=== PATIENT | female | born 1955 | race Caucasian/White ===

== ENCOUNTER 2017-05-25 20:10 | Observation (INO) | payer OTHER ==
--- NOTE | 2017-05-25 20:33 | EDPHY ---
H & P Stated Complaint: CHEST PAIN AND DYSPNEA - Personal History Current Tetanus/Diphtheria Vaccine: Unsure Tetanus Vaccine Date: < 10 YRS - Medical/Surgical History Hx Asthma: No Hx Chronic Respiratory Disease: No Hx Diabetes: No Hx Cardiac Disease: No Hx Renal Disease: No Hx Cirrhosis: No Hx Alcoholism: No Hx HIV/AIDS: No Hx Splenectomy or Spleen Trauma: No Other PMH: AORTIC AYNERSYM, KNEE SURGERY OSTEPEROSIS - Social History Smoking Status: Never smoked HPI/ROS: CHIEF COMPLAINT: Chest pain HISTORY OF PRESENT ILLNESS: Patient complains of chest pain that started early this morning. It is left- sided chest pain. Does not radiate. Constant duration. [id number]. Associated with difficulty catching her breath. No shortness of breath. No recent travel or surgery. No extremity erythema edema or pain. No trauma or injury. No nausea or sweating. Recently started Monday and was brief. She saw her road engineer on Monday for an EKG. This was reportedly normal. They then scheduled for outpatient for further workup. She was told to come to the ER for return and did so this morning. She is concerned about it. No other associated complaints or modifying factors. REVIEW OF SYSTEMS: Ten systems reviewed and are negative unless otherwise noted in the HPI PAST MEDICAL HISTORY: Hypothyroid. Reportedly aberrant Cardiovascular vasculature but no CAD. No ND. No stroke. SOCIAL HISTORY: Nonsmoker. Lives independently here with her spouse FAMILY HISTORY: Coronary artery disease in the family prior to age 60. EXAMINATION General Appearance: Alert, no distress Head: normocephalic, atraumatic Eyes: Pupils equal and round, no conjunctival pallor or injection ENT, Mouth: Mucous membranes moist Neck: Normal inspection, supple, non-tender Respiratory: Lungs are clear to auscultation Cardiovascular: Regular rate and rhythm. No murmur. Pulses intact distally Gastrointestinal: Abdomen is soft and nontender Back: non-tender, no bony abnormalities Neurological: A&O, nonfocal, normal gait Skin: Warm and dry, no rash Extremities: Nontender, no pedal edema Psychiatric: Mood and affect normal DIFFERENTIAL DIAGNOSES: Including but not limited to ACS, chest pain, PE, pneumonia, reflux, pleurisy, pericarditis MDM: 8:30 p.m. Chest pain that originally started Monday and then resolved. The pain returned early this morning. It has been constant throughout the day today. Not exertional. Does not radiate. No shortness of breath but some difficulty "catching" her breath. No previous diagnosis of coronary artery disease. Laboratory studies an EKG are pending. Vital signs are stable. 9:45 p.m. Chest x-ray is normal. Laboratory studies are within normal limits, this includes a negative troponin which is sensitive given the duration of her pain. Also includes a negative D-dimer. 9:55 p.m. I have re-evaluated the patient. I originally thought that the patient's chest pain started this morning. She clarified that it started at 6:00 p.m. and not 6 :00 a.m.. Lesser chest pain is been present for 4 hours at this time. Given that information I do recommend that we observe the patient for serial troponins tonight. She is agreeable with this plan. Thus far thing laboratory studies are negative and vital signs are stable. Addendum 1:20 a.m. This is an addendum to the patient's chart. After she was admitted to the hospital I was recently contacted by radiologist Dr. Cruz. He informed me that there is a small nodule on the right side of the chest x-ray. He suspects this is consistent with a nipple shadow. He recommends that the patient receive a chest x-ray with nipple markers in the morning. I have conveyed this information to Dr. Mistry. She will discuss with her colleagues to arrange for the chest x-ray in the morning. SUPERVISION: Patient was evaluated in conjunction with the supervising physician. Please see their note for details. (Tariq Raymond) Constitutional: Initial Vital Signs Temperature (C) 36.0 C 05/25/17 20:11 Heart Rate 88 05/25/17 20:11 Respiratory Rate 18 05/25/17 20:11 Blood Pressure 122/75 H 05/25/17 20:11 O2 Sat (%) 97 05/25/17 20:11 O2 Delivery Mode Room Air Allergies/Adverse Reactions: No Known Allergies Allergy (Unverified 08/22/09 08:54) Home Medications: Medication Instructions Recorded Calcium Carbonate [[id number]] 500 mg PO BID 07/26/13 Cholecalciferol Vit D3 [Vitamin D3 1,000 units PO DAILY 07/26/13 (*)] Herbals/Supplements -Info Only 1 each PO AD 07/26/13 Thyroid [Lenox Thyroid 60 MG (*)] 45 mg PO DAILY10 07/26/13 Vitamin B Complex [B Complex] 1 each PO DAILY 07/26/13 Zolpidem Tartrate [Ambien 5MG (*)] 5 mg PO HS PRN 07/26/13 Alendronate Sodium [Fosamax 70 MG 70 mg PO TU@0700 05/26/17 (*)] diphenhydrAMINE [Benadryl 25 MG 25 - 50 mg PO HS PRN 05/26/17 (*)] Medical Decision Making - Diagnostics EKG Interpretation: 12 lead EKG is interpreted in Trace master View by emergency department physician. (Jaz Redd) Other Provider: I have evaluated and participated in the management of this patient. My co- signature indicates that I have reviewed this chart and that I agree with the findings and the plan of care as documented. My personal history and physical findings include: 61-year-old female who presents with left upper chest pain that has been constant for the past few hours. She had similar chest pain 3 days ago that resolved spontaneously. She reports mild dyspnea, no nausea or diaphoresis. She exercises regularly and does not experience chest pain with exertion. His a family history of early coronary artery disease. She underwent coronary angiogram 10 years ago and reports that no significant coronary artery disease was seen. Apparently there was a question of an aberrant coronary artery--she had this evaluated at [facility] and told that it was told that was nothing to worry about. She is known to have dilatation of the ascending aorta, last noted to be just over 4 cm. She has this regularly followed and brings the reports with her. She has taken aspirin. On physical examination she is awake and alert. No jugular venous distension. Lungs are clear to auscultation. Heart has regular rate and rhythm without murmur, rub, or gallop. Abdomen is soft and nontender. Lower extremities are without edema. I reviewed her EKG and chest x-ray. Initial troponin is normal. She is being admitted for serial troponins. This pain could be GI in origin or musculoskeletal. She has no risk factors for PE and I do not suspect PE. There is no evidence of pneumonia on chest x-ray. She has not had chest trauma. (Jaz Redd) - Data Points Laboratory Results: Laboratory Results 05/25/17 20:50 05/25/17 20:50 Medications Given: Discontinued Medications Acetaminophen (Tylenol) 1,000 mg PO ONCE ONE Stop: 05/25/17 22:20 Last Admin: 05/25/17 22:31 Dose: 1,000 mg Diphenhydramine HCl (Benadryl) 25 - 50 mg PO Q6HRS PRN PRN Reason: Itching Stop: 11/21/17 23:56 Last Admin: 05/26/17 02:30 Dose: 25 mg Enoxaparin Sodium (Lovenox) 40 mg SC DAILY PEACE Stop: 11/22/17 08:59 Last Admin: 05/26/17 09:28 Dose: 40 mg Sodium Chloride (Ns) 1,000 mls @ 75 mls/hr IV CONT PEACE Stop: 11/21/17 23:44 Last Admin: 05/26/17 00:40 Dose: 1,000 mls Thyroid (Lenox Thyroid) 45 mg PO DAILY10 PEACE Stop: 11/22/17 12:14 Last Admin: 05/26/17 12:50 Dose: Not Given Departure - Departure Disposition: [facility] Acute Clinical Impression: Incidental lung nodule Chest pain Qualifiers: Chest pain type: unspecified Qualified Code(s): R07.9 - Chest pain, unspecified Condition: Good
--- NOTE | 2017-05-25 20:44 | CPEKG ---
Heart Rate: 66 RR Interval: 909 P-R Interval: 180 QRSD Interval: 84 QT Interval: 424 QTC Interval: 445 P Butler: 45 QRS Butler: -17 T Wave Butler: 37 EKG Severity - OTHERWISE NORMAL ECG - EKG Impression: SINUS RHYTHM EKG Impression: BORDERLINE LEFT AXIS DEVIATION Electronically Signed By: Jaz Redd 25-May-2017 23:16:30
[2017-05-25 20:58] LABS: % IMMATURE GRANULYOCYTES 0.4 % (0.0-1.1); ABSOLUTE IMMATURE GRANULOCYTES 0.02 10^3/uL (0.00-0.10); ADD DIFF? NO; ADD MORPH? NO; ADD SCAN? NO; ATYPICAL LYMPHOCYTE FLAG 10 (0-99); FRAGMENT RBC FLAG 0 (0-99); HEMATOCRIT 39.5 % (38.0-47.0); HEMOGLOBIN 13.4 g/dL (12.6-16.3); LEFT SHIFT FLG 0 (0-99); LIPEMIA HEMOLYSIS FLAG 90 (0-99); MEAN CELL HEMOGLOBIN 30.9 pg (27.9-34.1); MEAN CELL HEMOGLOBIN CONCENTR. 33.9 g/dL (32.4-36.7); MEAN CELL VOLUME 91.2 fL (81.5-99.8); MEAN PLATELET VOLUME 9.3 fL (8.7-11.7); PLATELET CLUMPS FLAG 10 (0-99); PLATELET COUNT 203 10^3/uL (150-400); RED BLOOD CELL COUNT 4.33 10^6/uL (4.18-5.33); RED CELL DISTRIBUTION WIDTH 12.5 % (11.5-15.2)
[2017-05-25 21:13] LABS: INR 0.98 (0.83-1.16); PROTIME(PATIENT) 12.9 SEC (12.0-15.0)
[2017-05-25 21:14] LABS: APTT 29.6 SEC (23.0-38.0)
[2017-05-25 21:16] LABS: ANION GAP 12 mEq/L (8-16); CALCIUM 9.7 mg/dL (8.5-10.4); CARBON DIOXIDE 26 mEq/l (22-31); CHLORIDE 102 mEq/L (97-110); CREATININE 0.9 mg/dL (0.6-1.0); GLOMERULAR FILTRATION RATE > 60; GLUCOSE 99 mg/dL (70-100); POTASSIUM 3.7 mEq/L (3.5-5.2); SODIUM 140 mEq/L (134-144)
[2017-05-25 21:26] LABS: TROPONIN I < 0.012 ng/mL (0.000-0.034)
[2017-05-25] MEDS ORDERED: ACETAMINOPHEN 500 MG TAB PO ONE (22:19)
[2017-05-25] MEDS ORDERED: NS 1,000 ML IV SCH (23:45)
[2017-05-25] MEDS ORDERED: ACETAMINOPHEN 325 MG TAB PO PRN (23:57)
[2017-05-25] MEDS ORDERED: ONDANSETRON DISINTEGRATING 4 MG TAB PO PRN (23:57)
[2017-05-25] MEDS ORDERED: HYDROCODONE/APAP 5/325 TAB PO PRN (23:57)
[2017-05-25] MEDS ORDERED: ONDANSETRON 4 MG/2 ML VIAL IVP PRN (23:57)
[2017-05-26] MEDS: diphenhydrAMINE 25 MG CAP PO PRN ×2 (00:40→02:30)
--- NOTE | 2017-05-26 03:47 | GHP ---
[f rep st] HISTORY AND PHYSICAL DATE OF SERVICE: 05/25/2017. Patient seen prior to midnight on 05/25/17 upon arrival to the floor. SOURCE: Patient provides history, appears reliable. Her EMR was also reviewed and case discussed with ED provider. CHIEF COMPLAINT: Left-sided chest pain. HISTORY OF PRESENT ILLNESS: This is a very pleasant 61-year-old female with past medical history significant for hypothyroidism, migraines, and report of aortic aneurysm last noted to be approximately 4.1 cm in dilation in April 2016, who presents to the emergency department today with complaints of persistent left-sided chest pressure. Patient reports that she had initial episode of chest pain starting on Monday that caused her significant amount of discomfort. She described the pain as pressure, heavy on the left side. On Monday, she states that she had radiation to her neck and left arm. The patient was asleep at the time of onset of her symptoms. Patient waited approximately 30 minutes and the pain resolved on its own. Patient has not had any exertional type symptoms or claudication. She states that she is quite active and generally hikes several times monthly and has never had any issues with chest pain. The patient is without any previous history of CAD or diabetes. She has remote history of angiogram without any notation of coronary artery disease. She does report that she has a history of some atypical anatomy. Patient also reports that she has a history of ascending aortic aneurysm, for which she is followed with annual echocardiograms. The patient states that her last echo noted ascending aortic dilation of approximately 4.1 cm, which had increased from previous studies. The patient is followed closely at [facility], but she admits that she has not had followup since her last echocardiogram in 2015. Today, patient states she awoke with similar chest pressure and dull sensation on the left side. She also feels like she cannot take in a sufficient breath, and feels some shortness of air, but no dyspnea on exertion, no lower extremity edema, no orthopnea, no PND reported. Patient does note some increased nasal congestion, but no sore throat or cough. She has not had any fevers or chills, and no sick contacts. Patient does admit to having a headache earlier in the day, developed into a migraine for which she took Excedrin, Advil, and DayQuil over the course of the day with final improvement of her symptoms later in the day. Currently, the patient reports some GI upset , but has not had associated nausea, vomiting, or diaphoresis with onset of her chest pain. Patient does admit that she has had occasional reflux, particularly increased in the past week. She denies any aspiration or choking. She occasionally feels like a pill may get stuck in the middle of her esophagus, but does not occur frequently. REVIEW OF SYSTEMS: GENERAL: Patient denies any fevers or chills. 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 She denies any other rashes or sores. ENT: Patient does report some nasal congestion. No sore throat. EYES: Patient denies any acute changes of vision. Does wear readers and contacts. CV: As noted above in HPI. Pain is nonradiating. She denies any pain radiating to her back or shoulder blades. RESPIRATORY: No cough, shortness of breath as noted in the HPI. GI: No nausea, vomiting, abdominal pain, or diarrhea. : No dysuria, hematuria. MUSCULOSKELETAL: Patient denies any myalgias or acute joint pain. NEURO: Patient with history of migraine early in the day, now resolved. No numbness, tingling, or focal weakness. PSYCH: Patient denies any anxiety or depression. The remainder of the review of systems is negative, except as noted above. ALLERGIES: No known drug allergies. HOME MEDICATIONS: Ambien 5 mg p.o. h.s. p.r.n., [place] Thyroid, vitamin D, calcium, multivitamin, Fosamax, vitamin K supplement, selenium, magnesium, vitamin B complex. PAST MEDICAL HISTORY: Significant for insomnia, hypothyroidism, migraine headache, report of ascending aortic aneurysm, as noted above, last measured on echo, aortic dilation of 4.1 cm. PAST SURGICAL HISTORY: Left total knee arthroplasty, bilateral wrist arthrotomy , right inguinal hernia repair, cardiac cath through right femoral. FAMILY HISTORY: No history of CAD, 2 sisters with history of CVA, mother age 88, father age 94. SOCIAL HISTORY: Patient is , lives with her , and has 6 adult sons, all in good health. Patient denies any tobacco, drugs, or alcohol use. She is quite active and hikes regularly. CODE STATUS: Patient without any advanced directive, but desires her to act as proxy if needed. She desires to be full code. PHYSICAL EXAMINATION: VITALS: On arrival to the ER, temperature 36.0, pulse 88 , respiratory rate 18, blood pressure is 122/75, with a pulse ox of 97% on room air. Current vitals available, blood pressure 134/71, pulse 57, respiratory rate 18, O2 sat 91, temperature 36.6. GENERAL: No acute distress. Pleasant, thin, adult female, who is sitting up comfortably in bed. She does appear a little bit anxious. HEAD: Normocephalic, atraumatic. EYES: Extraocular muscles are intact. Pupils equal, round, reactive to light bilaterally and symmetric. No scleral icterus or conjunctival injection. ENT: Mucous membranes appear moist. No oropharyngeal erythema. Dentition intact. NECK: Supple. Trachea midline. CV: Slightly bradycardic, rate without any murmurs, rubs, or gallops appreciated. CHEST: Patient does have some intercostal muscle tenderness to palpation, which she reports feels like sharp pain differentiated from her baseline chest pressure, but she has diffuse tenderness on the left side with superficial palpation. RESPIRATORY: Unlabored breathing. Lungs are clear to auscultation bilaterally. No wheezes, rales, or rhonchi appreciated. ABDOMEN: Positive bowel sounds. Soft, nontender to palpation. No rebound, guarding, or masses. : No suprapubic tenderness to palpation. No Randall catheter in place. EXTREMITIES: No cyanosis, clubbing or edema appreciated. MUSCULOSKELETAL: Strength 5/5 in upper and lower extremities. Patient able to sit up independently. SKIN: Patient does have on the right anterior mid lower leg a scabbed, approximately 1 cm irregularly bordered scab, with some surrounding blanchable erythema. NEURO: Cranial nerves 2 through 12 are intact, symmetric bilaterally. Patient is awake, alert , and oriented x3. Moves all extremities as noted above. PSYCH: Patient does appear quite anxious, but she is pleasant and cooperative. Thought process, content and questions are appropriate. LABORATORY STUDIES: WBC 5.0, H and H 13.4 and 39.5, MCV 91.2, platelet count 203, no bands. Sodium 140, potassium 3.7, chloride 102, CO2 26, BUN is 17, creatinine is 0.9, GFR greater than 60, glucose 99, calcium 9.7, troponin less than 0.012, BNP 50, lipase 253. EKG, reviewed by myself, shows normal sinus rhythm without any acute ST changes. QTC is 438. Chest x-ray: Image report reviewed myself showing nothing acute, mild tortuosity of the descending thoracic aorta, small calcified granuloma right upper lobe. ASSESSMENT AND PLAN: 1. Pleasant 61-year-old female who presents with complaints of atypical chest pain concerning for more musculoskeletal or pleuritic etiology with patient's recent complaints of increased nasal congestion, and some reproducible tenderness on palpation. The patient's initial cardiac evaluation with EKG and troponins is negative. Will trend troponin in the morning. Repeat EKG p.r.n. for any acute changes to her chest pain given the patient has a history of aortic dilation, has not been monitored more recently. Will plan to obtain an echocardiogram to evaluate for any progression. Based on these results, consider stress testing although patient's heart score is low, is 1. 2. History of recent reflux. Patient denies any current symptoms at time of interview, but will make available p.r.n. treatment. 3. Hypothyroidism. Continue patient's supplementation. Check TSH. 4. Nasal congestion. Benadryl p.r.n. Patient may have component of post nasal drip contributing to her current symptoms. Offered some Flonase, but patient declines at this time. Will plan to use it when she gets home. 5. Migraine. Currently resolved. P.r.n. pain medications available. 6. Insomnia. Benadryl p.r.n. at h.s. 7. Fluids, electrolytes and nutrition. Patient will receive some gentle intravenous fluid hydration overnight. Will monitor electrolytes, place the patient on a diet, and will make her n.p.o. after midnight for consideration of possible stress pending the echocardiogram. 8. Prophylaxis. The patient will be placed on Lovenox and sequential compression devices as tolerated. 9. Code status is full. DISPOSITION: Patient admitted to observation on PCU. /[id number]/MODL MTDD
[2017-05-26 05:20] LABS: % IMMATURE GRANULYOCYTES 0.4 % (0.0-1.1); ABSOLUTE IMMATURE GRANULOCYTES 0.02 10^3/uL (0.00-0.10); ADD DIFF? NO; ADD MORPH? NO; ADD SCAN? NO; ATYPICAL LYMPHOCYTE FLAG 0 (0-99); FRAGMENT RBC FLAG 0 (0-99); HEMATOCRIT 37.5 % (38.0-47.0); HEMOGLOBIN 12.6 g/dL (12.6-16.3); LEFT SHIFT FLG 0 (0-99); LIPEMIA HEMOLYSIS FLAG 80 (0-99); MEAN CELL HEMOGLOBIN CONCENTR. 33.6 g/dL (32.4-36.7); MEAN CELL VOLUME 92.1 fL (81.5-99.8); MEAN PLATELET VOLUME 9.6 fL (8.7-11.7); PLATELET CLUMPS FLAG 0 (0-99); PLATELET COUNT 187 10^3/uL (150-400); RED BLOOD CELL COUNT 4.07 10^6/uL (4.18-5.33); RED CELL DISTRIBUTION WIDTH 12.4 % (11.5-15.2)
[2017-05-26 05:34] LABS: ANION GAP 9 mEq/L (8-16); CARBON DIOXIDE 27 mEq/l (22-31); CHLORIDE 103 mEq/L (97-110); CREATININE 0.9 mg/dL (0.6-1.0); GLOMERULAR FILTRATION RATE > 60; GLUCOSE 73 mg/dL (70-100); POTASSIUM 3.8 mEq/L (3.5-5.2); SODIUM 139 mEq/L (134-144)
[2017-05-26 05:43] LABS: TROPONIN I < 0.012 ng/mL (0.000-0.034)
[2017-05-26] MEDS ORDERED: ENOXAPARIN 40 MG/0.4 ML SYR SC SCH (09:00)
[2017-05-26 11:10] VITALS: BP 117/72; PULSE 52; RESP 16; TEMP 97.6; O2SAT 96
[2017-05-26] MEDS ORDERED: ZOLPIDEM TARTRATE 5 MG TAB PO PRN (11:44)
[2017-05-26] MEDS ORDERED: THYROID 90 MG PO SCH (12:15)
--- NOTE | 2017-05-26 12:27 | ECHO ---
[id number] + + [address] : : [place] [address] : : [phone] + + Adult Echocardiographic Report + -----+ :Name: THA YARBROUGH CStudy Date: 05/26/2017 10:10 AM : : Hospital Admission Number: [id number] Location : 220: :: 1955 Gender: Female Height: 66 in : :Age: 61 yrs Race: WH Weight: 129 lb : :Reason For Study: Chest pain : : BSA: 1.7 meters2 : + -----+ MMode/2D Measurements \T\ Calculations IVSd: 0.56 cm LVIDd: 5.2 cm FS: 35.6 % Ao root diam: LVPWd: 0.82 cm LVIDs: 3.3 cm EDV(Teich): 3.9 cm 128.5 ml LA dimension: ESV(Teich): 3.0 cm 45.3 ml EF(Teich): 64.8 % LVLd ap4: 7.8 cm SV(MOD-sp4): EDV(MOD-sp4): 66.0 ml 82.0 ml LVLs ap4: 6.2 cm ESV(MOD-sp4): 16.0 ml EF(MOD-sp4): 80.5 % Normal Measurement Values: + + :LVIDd (3.5-5.7cm) IVSd (0.6-1.1cm) LVPWd (0.6-1.1cm) Aortic Root (2.0-3.7cm)Left Atrium (1.5-4.0cm): :LV Vol(d) (76-115ml) LV Vol(s) (29-48ml) Ejec Fraction (50-65%)PV Parminder (0.6- 1.2m/s) TV Parminder (0.4-1.0m/s) : :MV E Parminder (0.8-1.0m/s)MV A Parminder (0.3-1.0m/s)LVOT Parminder (0.7-1.2m/s) Asc Ao Parminder ( 0.9-1.8m/s) : + + Doppler Measurements \T\ Calculations MV E max parminder: 61.2 cm/sec Ao V2 max: 105.9 cm/sec TR max parminder: 213.1 cm/sec MV A max parminder: 42.9 cm/sec Ao max P.5 mmHg TR max P.2 mmHg MV E/A: 1.4 RAP systole: 5.0 mmHg RVSP(TR): 23.2 mmHg Left Ventricle The left ventricle is normal in size. There is normal left ventricular wall thickness. Left ventricular systolic function is normal. Ejection Fraction = 65-70%. No regional wall motion abnormalities noted. Right Ventricle The right ventricle is normal in size and function. Atria The left atrial size is normal. Right atrial size is normal. Mitral Valve The mitral valve is normal in structure and function. There is no evidence of mitral valve prolapse. There is no mitral valve stenosis. There is trace mitral regurgitation. Tricuspid Valve Normal tricuspid valve. Right ventricular systolic pressure is normal. There is mild to moderate tricuspid regurgitation. Aortic Valve The aortic valve is trileaflet. The aortic valve opens well. There is no aortic stenosis. There is no aortic insufficiency. Pulmonic Valve The pulmonic valve is normal in structure and function. Trace pulmonic valvular regurgitation. Great Vessels Mildly dilated ascending aorta. Pericardium/Pleural There is no pericardial effusion. There is a fat pad seen. Conclusion A complete two-dimensional transthoracic echocardiogram was performed (2D, M-mode, Doppler and color flow Doppler). 1. The left ventricle is normal in size and function. The Ejection Fraction = 65-70%. 2. The mitral valve is normal in structure and function. There is trace mitral regurgitation. 3. The aortic valve is trileaflet. There is no aortic stenosis. There is no aortic insufficiency. 4. Mildly dilated ascending aorta at 3.9 cm. 5. The pulmonary arterypressure estimate is with in normal limits. 6. No pericardial effusion. 7. No old studies for comparison. Final Reading Physician: Flaquito Flores MD electronically signed on 05/26/2017 12:26 PM Ordering Physician: Daysi Sanabria Performed By: Malena Pelayo, [facility]
--- NOTE | 2017-05-26 15:19 | GDS ---
[f rep st] DISCHARGE SUMMARY ACUTE DIAGNOSES: 1. Acute chest pain, noncardiac in origin. Possibly related to gastroesophageal reflux disease or musculoskeletal. 2. Aortic dilation, known by history, with a repeat echocardiogram showing no change. 3. Gastroesophageal reflux disease. 4. Hypothyroidism. CHRONIC DIAGNOSES: Osteoporosis, migraine headaches. CONSULTATION: None. PROCEDURES: Echocardiogram showing normal LV function, with an ejection fraction of 65% to 70%. No rmal mitral and aortic valve, mildly dilated ascending aorta at 3.9. No pericardial effusion. By r eport, a prior echo that showed the aortic dilation at 4.1 cm, and thus there is no significant ibrahim ge. HOSPITAL COURSE: This is a 61-year-old female, who presents with left-sided chest pain. She was ad mitted. Electrocardiogram showed no acute findings, showing only sinus rhythm, with a borderline le ft axis deviation. Echocardiogram showed normal LV function. No wall motion abnormalities, and aor ta that remained dilated at 3.9 cm, which represented no change in the prior echocardiogram at 4.1. Biomarkers were all normal. CBC and chem panel were all normal. Monitor rhythm on the department, showed only sinus rhythm without any signs of ectopy. Case was discussed with Cardiology, and it was suggested that she have an outpatient exercise tolera nce test. Should be noted that the patient does walk and reports that her heart rate will rise to 1 55 without evidence of chest pain, and she reports that her chest discomfort resolves with exercise. Additionally, she has had no history of trauma, prolonged plane flight, or car ride to suggest a p ossibility of pulmonary embolus, and she had normal oxygenation without respiratory distress here in the hospital. DISCHARGE MEDICATIONS: She will take her herbal supplementation, Benadryl 25-50 mg p.o. q.h.s. p.r. n., Ambien 5 mg p.o. q.h.s., vitamin B complex, [place] Thyroid 45 mg p.o. daily, vitamin D3 1000 int ernational units daily, calcium carbonate, Os-Lalo 500 mg p.o. b.i.d., Fosamax 70 mg weekly on . PLAN: Patient is discharged home, accompanied by her . Her diet is unrestricted and her con dition was good. She will follow up for an outpatient exercise stress test on Monday, 05/29 at 2 p. m., in the afternoon, with Dr. Donald's office at the [facility]. The appointment has bee n made and communicated to the patient. TIME: This discharge required 50 minutes, greater than 50% to adoption counselor and coordinate care. Questio ns of both the and the patient were answered fully, and the case was discussed with Cardiolo gy before discharge. /[id number]/MODL
[2017-05-26] MEDS ORDERED: CALCIUM CARBONATE 500 MG TAB PO SCH (21:00)
[2017-05-27] MEDS ORDERED: CHOLECALCIFEROL VIT D3 1,000 UNITS TAB PO SCH (09:00)
[2017-05-27] MEDS ORDERED: VITAMIN B COMPLEX 1 EA CAP/TAB PO SCH (09:00)
[2017-05-30] MEDS ORDERED: ALENDRONATE SODIUM 70 MG TAB PO SCH (07:00)
== END 2017-05-26 15:32 | disposition home or self-care (01) ==
LOC: F2W 23:02
PROVIDERS: ADMIT Family Medicine; ATTEND Internal Medicine Pulmonary Disease
DX: R07.89 Other chest pain (principal); R93.8 Abnormal findings on diagnostic imaging of other specified body structures; K21.9 Gastro-esophageal reflux disease without esophagitis; E03.9 Hypothyroidism, unspecified; I77.819 Aortic ectasia, unspecified site; M81.0 Age-related osteoporosis without current pathological fracture; R09.81 Nasal congestion; G47.00 Insomnia, unspecified
CPT/HCPCS: 71010; 71020; 93005; 93306; G0378; J1650

== ENCOUNTER → 2017-06-08 | Outpatient (CLI) | payer OTHER | LOC: CIMAGING 10:32 | PROVIDERS: ATTEND Internal Medicine Cardiovascular Disease | DX: I77.89 Other specified disorders of arteries and arterioles (principal); R06.09 Other forms of dyspnea; R07.89 Other chest pain; R00.2 Palpitations; I70.0 Atherosclerosis of aorta ==

== ENCOUNTER → 2018-03-21 | Outpatient (CLI) | payer OTHER | LOC: BMCIMAGING 13:16 | PROVIDERS: ATTEND Family Medicine | DX: R07.89 Other chest pain (principal) | CPT/HCPCS: 71101-PO ==

== ENCOUNTER → 2018-08-16 | Outpatient (CLI) | payer OTHER | LOC: FIMAGING 11:43 | PROVIDERS: ATTEND Internal Medicine Endocrinology, Diabetes & Metabolism | DX: M85.89 Other specified disorders of bone density and structure, multiple sites (principal) ==

== ENCOUNTER → 2018-09-11 | Outpatient (CLI) | payer OTHER | LOC: FIMAGING 12:15 | PROVIDERS: ATTEND Internal Medicine | DX: Z12.31 Encounter for screening mammogram for malignant neoplasm of breast (principal) ==